=== PATIENT | female | born 1950 | race Caucasian/White ===

== ENCOUNTER 2020-12-16 07:47 | Observation (INO) | payer MEDICARE ==
[~2020-12-16] VITALS: Ht 170.2 cm; Wt 87.5 kg
[~2020-12-16 07:47] MED LIST: ALLO300T PO; ASPI-963 PO; CHOL-6 PO; FENO134C PO; INSU100I13 SQ-INSULIN; LOSA25TA25 PO; MECO10005 PO; METF500T17 PO; METO25TA4 PO; MULT-826 PO; NITR0.4T28 SL; OMEP-110 PO; UBID50TA3 PO
[2020-12-16 08:20] VITALS: BP 143/77
[2020-12-16] MEDS ORDERED: SODIUM CHLORIDE 0.9% 1,000 ML IV SCH (08:30)
[2020-12-16 08:45] LABS: ANION GAP 6 mmol/L (5-15); CALCIUM 9.2 mg/dL (8.5-10.1); CHLORIDE 108 mmol/L (98-107)
[2020-12-16 08:46] LABS: CREATININE 1.17 mg/dL (0.55-1.02)
[2020-12-16] MEDS ORDERED: NITROGLYCERIN 5 MG/ML, 10ML ONE (09:17)
[2020-12-16] MEDS ORDERED: VERAPAMIL 2.5 MG/ML, 2ML ONE ×2 (09:29→13:15)
[2020-12-16] MEDS ORDERED: LIDOCAINE-MPF 1%, 5ML ONE (09:30)
[2020-12-16] MEDS ORDERED: FENTANYL PF 100 MCG/2ML ONE ×2 (09:52→13:14)
[2020-12-16] MEDS ORDERED: MIDAZOLAM 1 MG/ML, 5ML ONE ×2 (09:52→13:14)
[2020-12-16] MEDS ORDERED: BIVALIRUDIN 250 MG ONE ×3 (10:02→13:15)
[2020-12-16] MEDS ORDERED: PRASUGREL 10 MG TABLET ONE (10:34)
[2020-12-16] MEDS ORDERED: hydrALAzine 20 MG/ML, 1ML ONE (11:14)
[2020-12-16] MEDS ORDERED: BIVALIRUDIN 250 MG in SODIUM CHLORIDE 0.9% 50 ML IV SCH (12:00)
[2020-12-16] MEDS ORDERED: MORPHINE SULFATE 4 MG/ML, 1ML IVPush PRN (12:00)
[2020-12-16] MEDS ORDERED: ACETAMINOPHEN 325 MG TABLET PO PRN (12:00)
[2020-12-16] MEDS: SODIUM CHLORIDE 0.9% 1,000 ML IV SCH ×2 (12:00→20:12)
[2020-12-16] MEDS ORDERED: ONDANSETRON 2MG/ML, 2ML IVPush PRN (12:00)
[2020-12-16] MEDS ORDERED: ZOLPIDEM 5MG TABLET PO PRN (12:00)
[2020-12-16] MEDS ORDERED: hydrALAzine 20 MG/ML, 1ML IV PRN (12:00)
[2020-12-16 12:07] VITALS: BP 122/67
[2020-12-16] MEDS ORDERED: NITROGLYCERIN SINGLE TAB 0.4 MG SL PRN (12:30)
[2020-12-16] MEDS ORDERED: NITROGLYCERIN 0.4 MG BOTTLE (25 TABS) SL ONE (13:10)
[2020-12-16] MEDS ORDERED: LIDOCAINE 2%, 20ML ONE (13:15)
[2020-12-16] MEDS ORDERED: TICAGRELOR 90 MG TABLET ONE (13:15)
[2020-12-16] MEDS ORDERED: HEPARIN 1,000 UNITS/ML, 10ML ONE (13:15)
[2020-12-16] MEDS ORDERED: TIROFIBAN HCL MONOHYDRATE 15 ML ONE (13:46)
[2020-12-16 15:15] VITALS: BP 92/62
[2020-12-16 15:30] VITALS: BP 67/46
[2020-12-16] MEDS: METOPROLOL TARTRATE 25 MG TAB PO SCH (16:38)
[2020-12-16 19:24] VITALS: BP 142/77
[2020-12-17 01:37] VITALS: BP 125/75
[2020-12-17] MEDS: SODIUM CHLORIDE 0.9% 1,000 ML IV SCH ×3 (01:37→11:53)
[2020-12-17 04:56] LABS: ANION GAP 8 mmol/L (5-15); CHLORIDE 110 mmol/L (98-107)
[2020-12-17 04:57] LABS: CREATININE 0.91 mg/dL (0.55-1.02)
[2020-12-17 07:00] VITALS: BP 133/73
[2020-12-17] MEDS: METOPROLOL TARTRATE 25 MG TAB PO SCH (08:34)
[2020-12-17] MEDS ORDERED: LOSARTAN 25MG TABLET PO SCH (09:00)
[2020-12-17] MEDS ORDERED: OMEPRAZOLE 20 MG CAPSULE.DR PO SCH (09:00)
[2020-12-17] MEDS ORDERED: ALLOPURINOL 300 MG TABLET PO SCH (09:00)
[2020-12-17] MEDS ORDERED: PRASUGREL 10 MG TABLET PO SCH (09:00)
[2020-12-17] MEDS ORDERED: ASPIRIN 81 MG TABLET EC PO SCH (09:00)
[2020-12-17] MEDS ORDERED: MULTIVITAMIN 1 TABLET PO SCH (09:00)
[2020-12-17] MEDS ORDERED: ATOR80TA PO ×2 (10:33)
[2020-12-17] MEDS ORDERED: CLOP75TA52 PO (10:33)
[2020-12-17 14:28] VITALS: BP 112/69
[2020-12-17] MEDS ORDERED: ATOR40TA78 PO (15:01)
== END 2020-12-17 14:53 | disposition home or self-care (01) ==
LOC: CACL 07:47 → 5SO 11:25 → ORIP 11:57 → CACL 12:36 → 5SO 14:32 → DCLOUNGE 12-17 13:30
PROVIDERS: ADMIT Internal Medicine Cardiovascular Disease; ATTEND Internal Medicine Cardiovascular Disease
DX: I25.110 Atherosclerotic heart disease of native coronary artery with unstable angina pectoris (principal); I10 Essential (primary) hypertension; E11.9 Type 2 diabetes mellitus without complications; E78.49 Other hyperlipidemia; S15.099S Other specified injury of unspecified carotid artery, sequela; Z79.82 Long term (current) use of aspirin; Z79.899 Other long term (current) drug therapy; Z88.0 Allergy status to penicillin; Z79.84 Long term (current) use of oral hypoglycemic drugs; Z95.5 Presence of coronary angioplasty implant and graft
CPT/HCPCS: 36415; 80048; 82962; 92978; 93005; 93454; 93458; 96361; 96374; 99156; 99157; C1725; C1753; C1760; C1769; C1874; C1887; C1894; C9600; G0378; J0360; J0583; J1644; J2250; J2270; J3010; J3490; J7030; Q9967